=== PATIENT | female | born 1990 | race Caucasian/White ===

== ENCOUNTER 2017-03-31 19:29 | Emergency (ER) | payer OTHER ==
[~2017-03-31] VITALS: Ht 160 cm; Wt 59.1 kg
[2017-03-31 19:32] VITALS: TEMP 98.4
[2017-03-31 20:44] VITALS: BP 100/63; PULSE 68
== END 2017-03-31 20:44 | disposition home or self-care (01) ==
LOC: COL.ER 19:29
DX: T78.1XXA Other adverse food reactions, not elsewhere classified, initial encounter (principal); L50.0 Allergic urticaria
CPT/HCPCS: J1100; J1200

== ENCOUNTER → 2017-06-12 | Emergency (ER) | payer OTHER ==
[~2017-06-12] VITALS: Ht 157.5 cm; Wt 72.7 kg
[2017-06-12 10:55] VITALS: BP 110/55; PULSE 81; TEMP 98.5
== END ==
LOC: COL.ER 08:32
DX: S63.91XA Sprain of unspecified part of right wrist and hand, initial encounter (principal); W22.01XA Walked into wall, initial encounter

== ENCOUNTER 2017-08-28 12:24 | Emergency (ER) | payer OTHER ==
[~2017-08-28] VITALS: Ht 153 cm; Wt 58.5 kg
[2017-08-28 12:25] VITALS: BP 126/63; PULSE 93; TEMP 98.4
[2017-08-28] MEDS ORDERED: FOLIC ACID0.8 MG PO (12:28)
[2017-08-28] MEDS ORDERED: DICLEGIS PO (12:28)
[2017-08-28 12:40] LABS: COLLECTION METHOD CLEAN CATCH
[2017-08-28 12:48] LABS: MUCOUS Present /lpf; PH 5 (5-8); URINE APPEARANCE Turbid; URINE BACTERIA None Seen /hpf; URINE BILIRUBIN Negative (NEGATIVE); URINE BLOOD 3+ (NEGATIVE); URINE COLOR Yellow; URINE GLUCOSE Negative (NEGATIVE); URINE KETONE Negative (NEGATIVE); URINE LEUKOCYTE ESTERASE 3+ (NEGATIVE); URINE NITRATE Negative (NEGATIVE); URINE PROTEIN(semi-quant) 2+ (NEGATIVE); URINE RBC >50 /hpf; URINE UROBILINOGEN Negative (NEGATIVE)
[2017-08-28] MEDS ORDERED: CEFTIN500 MG PO (13:43)
== END 2017-08-28 13:52 | disposition home or self-care (01) ==
LOC: COL.ER 12:24
PROVIDERS: Emergency Medicine
DX: O23.41 Unspecified infection of urinary tract in pregnancy, first trimester (principal); Z3A.08 8 weeks gestation of pregnancy